=== PATIENT | female | born 1990 | race Caucasian/White ===

== ENCOUNTER 2017-03-30 18:50 | Emergency (ER) | payer OTHER ==
[2017-03-30 19:13] VITALS: BP 122/78; PULSE 100; RESP 16; TEMP 98.6; O2SAT 97
--- NOTE | 2017-03-30 19:38 | EDPHY ---
H & P HPI/ROS: CHIEF COMPLAINT: Right foot and ankle pain History by patient HISTORY OF PRESENT ILLNESS: 26 old woman presents complaining of pain in her right foot along with bruising and swelling after twisting it while walking down stairs 2 weeks ago. Subsequently she has been able to ambulate but with difficulty and pain. She has been taking ibuprofen with some relief. 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 and requires multiple state visit in a day and has been having difficulty keeping up with this because of the pain in her foot and is looking for work excuse. REVIEW OF SYSTEMS: As in HPI, and all other systems reviewed and are negative Smoking Status: Current every day smoker Physical Exam: General Appearance: Alert and no distress. Eyes: Pupils equal and round no injection. Musculoskeletal: Neck is supple and nontender. Extremities: Right foot positive ecchymoses and swelling around right ankle and 5th meta carpal. Positive 5th metacarpal tenderness. Positive talar fibular ligament tenderness, no lateral or medial malleolar tenderness , DP pulse 2 +and equal to the left, distal sensation intact, distal cap refill less than 2 sec, wiggles all toes, full range of motion of ankle with pain Skin: No rashes or lesions except as described above. Constitutional: Initial Vital Signs Temperature (C) 37.0 C 03/30/17 19:10 Heart Rate 100 03/30/17 19:10 Respiratory Rate 16 03/30/17 19:10 Blood Pressure 122/78 H 03/30/17 19:10 O2 Sat (%) 97 03/30/17 19:10 O2 Delivery Mode Room Air Allergies/Adverse Reactions: azithromycin Allergy (Verified 10/28/14 12:57) naproxen sodium [From Aleve] Allergy (Verified 10/28/14 12:57) Home Medications: Medication Instructions Recorded Adderall Xr 15 mg Capsule 07/29/13 MDM/Departure - MDM Imaging: I viewed and interpreted images myself ED Course/Re-evaluation: [age] old woman presents with ft and ankle injury with persistent ecchymoses and pain. X-rays of foot and ankle show no evidence of fracture. We discussed home care including weight-bearing and mobility as tolerated. Continue ibuprofen and ice and elevation as needed for pain and swelling. Patient was given limited work duty for the next week and referred to her primary care physician for follow-up. - Depart Disposition: Home, Routine, Self-Care Clinical Impression: Right ankle sprain Qualifiers: Encounter type: initial encounter Involved ligament of ankle: unspecified ligament Qualified Code(s): S93.401A - Sprain of unspecified ligament of right ankle, initial encounter Condition: Good Instructions: Ankle Sprain (ED) Additional Instructions: You were seen by Dr. Rubina Mercado today. You may put as much weight as you can tolerate on your ankle. Continue take ibuprofen or Tylenol as needed for pain and ice your foot as needed for pain. Please follow up with her primary care physician if no improvement. Return for any worsening or new concerns. Stand Alone Forms: Work Limited Duty Referrals: Maira Mcginnis MD [Primary Care Provider] - As per Instructions
== END 2017-03-30 19:45 | disposition home or self-care (01) ==
LOC: CED 18:50
DX: S93.401A Sprain of unspecified ligament of right ankle, initial encounter (principal); F17.200 Nicotine dependence, unspecified, uncomplicated; X58.XXXA Exposure to other specified factors, initial encounter; Y99.8 Other external cause status; Y93.01 Activity, walking, marching and hiking
CPT/HCPCS: 73610-PO; 73630-PO